=== PATIENT | female | born 1965 | race Caucasian/White ===

== ENCOUNTER 2018-07-08 17:22 | Outpatient (CLI) | payer OTHER ==
--- NOTE | 2018-07-09 08:42 | Diagnostic Imaging Report ---
Chest x-ray 2 views HISTORY:Cough The overall heart size is normal. No focal pulmonary processes. No hilar or mediastinal abnormalities. IMPRESSION: No acute abnormalities.
== END 2018-07-08 17:38 ==
LOC: EEVIPCON 17:22 → RAD 17:22
DX: R05 Cough (principal)
CPT/HCPCS: 71046-TC